=== PATIENT | male | born 1970 | race Caucasian/White ===

== ENCOUNTER 2024-10-01 19:36 | Inpatient (IN) | payer BC, SELFPAY ==
[2024-10-01 16:09] LABS: Hematocrit 43.0 % (39.0-52.0); Hemoglobin 15.4 g/dL (13.0-18.0); Mean Corp Hgb Conc. 35.8 g/dL (33.0-37.0); Mean Corpuscular Volume 84.8 fL (80.0-94.0); Nucleated Red Blood Cells % 0 % (-); Platelet Count 188 10^3/uL (130-400); Red Cell Dist. Width 12.9 % (11.5-14.5)
[2024-10-01 16:16] VITALS: BMI 32.6
--- NOTE | 2024-10-01 16:17 | ED.GENMED ---
History of Present Illness
General
Chief Complaint: Abdominal Symptoms
Time Seen by Provider: 10/01/24 16:00
History of Present Illness
History of Present Illness:
54-year-old male presenting with upper abdominal pain radiating diffusely to his entire abdomen associate with nausea and dry heaves starting around noon. Patient denies vomiting, diarrhea, dysuria, hematuria, chest pain or shortness of breath. No
history of similar symptoms. Patient states he was taking Advil 600 mg once daily last week for right shoulder pain. Patient states he had a bagel for breakfast, nothing for lunch. Pt states he drinks alcohol socially.
Phy Exam
Physical Exam
Physical Exam:
General: Alert, no acute distress
Head: NCAT
Eyes: clear conjunctiva
Neck: supple
Cardiac: regular rate and rhythm, no murmur
Lungs: clear to auscultation bilaterally. No wheezes, rales, or rhonchi. Speaking full unlabored sentences. No respiratory distress.
Abdomen: soft, nondistended diffusely tender. No rebound or guarding.
MSK: no lower extremity edema bilaterally. No deformity
Skin: warm, dry
Neuro: Alert and oriented x3. no focal deficits
Course
Orders/Labs/Results
Orders:
Orders
10/01/24 Breakfast
Regular
10/01/24 14:43
Electrocardiogram (*1) Urgent
Reason for Study: Abdominal Pain
EKG- Treatment ONCE
10/01/24 15:37
IV Insert/Care/Rem.- Treatment PRN
10/01/24 15:52
Complete Blood Count/With Diff Urgent
Comprehensive Metabolic Panel Urgent
Lipase Urgent
Urinalysis Reflex To Culture Urgent
Date Specimen was Collected: 10/01/24
Time Specimen was Collected: 15:37
Urine Microscopic Reflex Cult Urgent
10/01/24 16:16
CT Abd/pelvis W Iv Cont Urgent
Comment:
Reason For Exam: diffuse abdominal pain
Famotidine [Pepcid] 20 mg IV NOW STA
Ondansetron Injectable [Zofran] 4 mg IV NOW STA
10/01/24 18:29
Morphine Sulfate 4 mg IV NOW STA
10/01/24 18:31
Lactic Acid Urgent
10/01/24 18:59
HEMATOLOGY CONSULT Routine
Consulting Provider: Silvestre Gonzalez
Was physician already notified: Yes
Heparin Protocol- PTT Orders As Directed
PTT per Heparin protocol: -Obtain CBC and baseline PTT - if not already collected.
-Obtain PTT 6 hours from start of infusion. Then, every 6 hours until 2 consecutive
PTT's are therapeutic. Then, PTT Daily.
-With each rate change, obtain PTT every 6 hours until 2 consecutive PTT's are
therapeutic. Then, PTT Daily.
Notify MD As Directed
Notify physician if: PTT is greater than or equal to 200.
10/01/24 19:00
Heparin 36049 Units/250 ml 25,000 units in 250 ml IV PER PROTOCOL
Weight to be used for heparin protocol in kilograms (kg):: 115
Protocol:: DVT/PE
PTT Goal Range to be used:: PTT 73 to 111 seconds
Order type:: Initial
INITIAL Infusion Dose (UNITS/KG/hr) & then follow protocol:: 18 units/kg/hr
Infusion Dose in UNITS/hr & then follow protocol (UNITS/hr):: 2,000
INFUSION RATE in mL/hr & then follow protocol (mL/hr):: 20
For DVT/PE algorithm, re-bolus for low PTT?: Yes
PTT less than or equal to 64 seconds:: Re-bolus 80 units/kg (max 10,000units). Increase by 500 units/hr
(+ 5mL/hr)
PTT 64.1 to 72.9 seconds:: Re-bolus 40 units/kg (max 5,000 units). Increase by 200 units/hr
(+ 2mL/hr)
PTT 73 to 111 seconds:: Target Range. No change in rate.
PTT 111.1 to 130.9 seconds:: Decrease rate by 200 units/hr (- 2 mL/hr)
PTT 131 to 199.9 seconds:: HOLD for 1 hr. Then decrease by 400 units/hr (- 4mL/hr)
PTT greater than or equal to 200 seconds:: HOLD for 2 hrs & Notify Provider. Then decrease by 500 units/hr
(- 5mL/hr)
Lab follow-up:: Each change, PTT q6h until 2 consecutive are therapeutic. Then
PTT daily.
10/01/24 19:01
Admit/Transfer Patient As Directed
Co-Sign Provider:
Level of Care: Inpatient admission
Assign to:: Medical/Surgical
Physician / Group: kit
Diagnosis: splenic infract
Reason for Hospitalization: splenic infract
Expected length of stay greater than two midnights?: Yes
ELOS- Estimated Length of Stay in days: 3
I certify the patient meets the requirements for IP care: Yes
PRN Pain Medication Management As Directed
May give lesser potent ordered pain med per pt: Yes
preference::
Protocol:: Medication orders for pain may be administered in a
manner that supports deferring to patient preference
when the pt is:
- Requesting an ordered lesser potent pain medication.
Least to most potent pain medications are defined
as: acetaminophen < NSAID < tramadol < opioids
(morphine, oxycodone, hydromorphone).
- Requesting a lesser dose of the same medication IF
ORDERED.
- Requesting a less intrusive route of administration
if both routes are prescribed by the provider (PO <
IV).
10/01/24 19:02
Code Status As Directed
Resuscitation Status: Full Code
10/01/24 19:12
PTT Urgent
Comment: Obtain baseline before beginning heparin infusion if not already collected
10/01/24 19:19
Heparin 9,200 units IV PRN PRN
10/01/24 19:21
Heparin 4,600 units IV PRN PRN
10/01/24 20:13
Acetaminophen [Tylenol] 650 mg PO Q4HPRN PRN
Bisacodyl [Dulcolax] 10 mg RECTAL [id number] PRN
Docusate W/Senna [Senokot-S] 1 tablet PO BIDPRN PRN
Ondansetron Injectable [Zofran] 4 mg IV Q6HPRN PRN
Polyethylene Glycol Powder [Miralax] 17 grams PO DAILYPRN PRN
10/01/24 20:13
Activity As Directed
Activity Level: As Tolerated
Vital Signs As Directed
Frequency: Per unit guidelines
10/02/24 06:00
Complete Blood Count/No Diff IN AM
10/02/24 08:00
Pantoprazole [Protonix IV] 40 mg IV DAILY
10/03/24 06:00
Complete Blood Count/No Diff IN AM
Complete Blood Count/No Diff Q2D
Comment: Notify MD if platelet count is <130,000 or decreases by 50% from baseline
10/04/24 06:00
Complete Blood Count/No Diff IN AM
10/05/24 06:00
Complete Blood Count/No Diff IN AM
Complete Blood Count/No Diff Q2D
Comment: Notify MD if platelet count is <130,000 or decreases by 50% from baseline
10/07/24 06:00
Complete Blood Count/No Diff Q2D
Comment: Notify MD if platelet count is <130,000 or decreases by 50% from baseline
10/09/24 06:00
Complete Blood Count/No Diff Q2D
Comment: Notify MD if platelet count is <130,000 or decreases by 50% from baseline
10/11/24 06:00
Complete Blood Count/No Diff Q2D
Comment: Notify MD if platelet count is <130,000 or decreases by 50% from baseline
10/13/24 06:00
Complete Blood Count/No Diff Q2D
Comment: Notify MD if platelet count is <130,000 or decreases by 50% from baseline
10/15/24 06:00
Complete Blood Count/No Diff Q2D
Comment: Notify MD if platelet count is <130,000 or decreases by 50% from baseline
10/17/24 06:00
Complete Blood Count/No Diff Q2D
Comment: Notify MD if platelet count is <130,000 or decreases by 50% from baseline
Abnormal Lab Results
10/01/24
15:52
WBC 14.9 H 10^3/uL
(4.8-10.8)
Abs Immat Gran (auto) 0.1 H 10^3/uL
(0-0.05)
Absolute Neuts (auto) 13.5 H 10^3/uL
(1.4-6.5)
Absolute Lymphs (auto) 0.8 L 10^3/uL
(1.2-3.4)
Neutrophils % 90.7 H %
(42.2-75.2)
Lymphocytes % 5.3 L %
(20.5-51.1)
Chloride 108 H mmol/L
(98-107)
Glucose 116 H mg/dl
(70-99)
Urine Bacteria (Reflex) Few A
(Negative)
Urine Albumin (Reflex) 1+ A
(Neg - Trace)
10/01/24 18:59
10/01/24 15:52
Vital Signs
Initial and Last Documented VS:
Initial Vital Signs
Temp Pulse Resp Pulse Ox
98.0 F 94 16 98
10/01/24 14:40 10/01/24 14:40 10/01/24 14:40 10/01/24 14:40
Last Documented Vital Signs
Temp Pulse Resp BP Pulse Ox
99.6 F 102 20 167/93 98
10/01/24 21:03 10/01/24 21:03 10/01/24 20:03 10/01/24 21:03 10/01/24 20:03
MDM/Problems Addressed
Differential Diagnosis Includes:
Pancreatitis, PUD, GERD, appendicitis, diverticulitis
MDM/Problems Addressed:
Results reviewed. WBC 14.9 with left shift. lipase 78. LFTs within normal limits. UA negative for UTI. CT abdomen pelvis shows mild splenomegaly with wedge-shaped regions of decreased enhancement in the spleen concerning for splenic
infarctions. Mesenteric panniculitis.
On reevaluation, patient reports improvement in symptoms. Patient reports epigastric pain. Discussed results with patient at bedside. Patient denies any fever, recent weight loss or night sweats. No history of A-fib or cancer.
Discussed with hematology and hospitalist for admission.
*Pulse Oximetry
SaO2: 98
Oxygen Mode of Delivery: Room air
Patient hypoxic: no
*EKG
Interpreted by ED Provider?: Yes (EKG shows NSR at 89bpm with GA 142 QTc 462 no acute ischemic changes)
*Critical Care Note
Total Time (30-74mins, 75-104mins- exclusive of procedures): Not Applicable
ED Attending Note
-
Portions of this chart may have been created with voice recognition software.� Occasional wrong word or��sound alike� substitutions may have occurred due to the inherent limitations of voice recognition software.
Discharge Plan
Departure
Patient Disposition: Admit
Date of Disposition: 10/01/24
Time of Disposition: 18:41
Presentation/result/management discussed w/ accepting MD/DO: Hospitalist
Discharge Problem:
Splenic infarction, Mesenteric panniculitis
Interventions
Interventions:
*Risk Screen - Suicide Last Done: 10/01/24 14:40
*Neglect/Abuse Screening Last Done: 10/01/24 14:40
*Nursing Disposition Last Done: 10/01/24 20:08
YN-Awussw-Ezirczhyxc Assessment Last Done: 10/01/24 16:16
Discharge Date and Time
Discharge Date/Time: 10/01/24 20:09
[2024-10-01] MEDS: ZOFRAN 4 MG IV (16:23)
[2024-10-01] MEDS: PEPCID 20 MG IV (16:24)
[2024-10-01 16:28] LABS: ALT (SGPT) 26 U/L (0-50); AST (SGOT) 30 U/L (17-59); Albumin 4.5 g/dl (3.5-5.0); Alkaline Phosphatase 56 U/L (38-126); Blood Urea Nitrogen 16 mg/dl (9-20); Calcium 9.6 mg/dl (8.4-10.2); Carbon Dioxide 26 mmol/L (22-30); Chloride 108 mmol/L (98-107); Estimated Creatinine Clearance > 125 ml/min; Glucose 116 mg/dl (70-99); Lipase 78 U/L (23-300); Potassium 4.2 mmol/L (3.5-5.1); Sodium 137 mmol/L (135-145); Total Protein 7.4 g/dl (6.3-8.2); eGFR > 60.00
[2024-10-01 16:41] LABS: Urine Character Slightly Cloudy (Clear)
[2024-10-01 16:50] LABS: Urine Red Blood Cell 0-2 /HPF (0-2); Urine White Cell 0-2 /HPF (0-5)
--- NOTE | 2024-10-01 18:35 | HPS.HSE ---
Family Physician
-
Family Physician: Harrison Orourke
Chief Complaint
-
abdominal pain
dry heaves
History of Present Illness
54-year-old male with no significant PMH presenting with upper abdominal pain radiating diffusely to his entire abdomen associate with nausea and dry heaves starting around noon. patient donated blood yesterday. He went out to eat, as he was coming
out of the restaurant he pass out and he was unresponsive for less than a minute. he passed again at home. they thought it could be from donating blood. this morning, he woke up with blurry vision, weak and lightheaded. blurry vision resolved but
the weakness and lightheaded persisted. around 1030 today morning, he felt dry heaves followed by abdominal pain. denied diarrhea or constipation. denied BRAVO. denied fever, chills, chest pain, sob. denied dysuria or hematuria. denied LE edema.
CT abdomen pelvis with impression of Mild splenomegaly with wedge-shaped regions of decreased enhancement in the spleen concerning for splenic infarctions.Mesenteric panniculitis.
patient received famotidine, morphine, Zofran in the ER.
Medical History
Past Medical History
Past Medical History: Reports Other
Past Surgical History: Reports None
Social History
Tobacco: Former Smoker
Alcohol: Occasional
Drug: None
Personal:
Living: With Family
Employment: Employed
Family History
Family History: Not pertinent
Allergies / Home Medications
Allergies reflects when Allergies were last updated in [facility].
Home Medications with original date entered in [facility]
Allergy/Medication List:
Allergies
Allergy/AdvReac Type Severity Reaction Status Date / Time
Cephalosporins Allergy Unknown Verified 10/01/24 14:42
penicillin V Allergy Unknown Verified 10/01/24 14:42
Penicillins Allergy Unknown Verified 10/01/24 14:42
Review of Systems
-
Constitutional: Reports Chills
EENT: Reports No Symptoms
Respiratory: Reports No Symptoms
Cardiac: Reports No Symptoms
Abdomen/GI: Reports Abdominal Pain and Nausea
: Reports No Symptoms
Musculoskeletal: Reports No Symptoms
Skin: Reports No Symptoms
Neurological: Reports Weakness
Endocrine: Reports No Symptoms
Hematologic/Lymphatic: Reports No Symptoms
Psych: Reports No Symptoms
Physical Exam
Vital Signs
Vital Signs
Temp Pulse Resp Pulse Ox
98.0 F 94 16 98
10/01/24 14:40 10/01/24 14:40 10/01/24 14:40 10/01/24 16:19
Physical Exam
General: Well Developed, Well Nourished and No Apparent Distress
HEENT: NormoCephalic, Moist mucous membranes and Atraumatic
Respiratory: Clear
Cardiac: S1/S2 and Regular Rhythm; No Murmur or Rub
GI: Soft, Non Distended and Normal Bowel Sounds; No Organomegaly
Rectal: Deferred by Provider
Musculoskeletal: No Clubbing, No Cyanosis and No Edema
Skin: No Rash
Neuro: AO x 3 and Nonfocal/grossly intact
Psych: Calm
Laboratory Results
-
10/01/24 15:52
10/01/24 15:52
Laboratory Results
Total Bilirubin 1.1 mg/dl (0.2-1.3) 10/01/24 15:52
AST 30 U/L (17-59) 10/01/24 15:52
ALT 26 U/L (0-50) 10/01/24 15:52
Alkaline Phosphatase 56 U/L (38-126) 10/01/24 15:52
Lipase 78 U/L (23-300) 10/01/24 15:52
Data Reviewed
-
CT Scan: Report Reviewed by me
Lab Data: Labs Reviewed by me
Impression/Plan
-
# Upper abdominal pain associate with nausea and dry heaves secondary to mesenteric panniculitis/mild splenomegaly with splenic infract
- WBC 14
- Lactate pending
- Continue PPI
- Zofran as needed for nausea vomiting
- CT of abdomen pelvis with impression of Mild splenomegaly with wedge-shaped regions of decreased enhancement in the spleen concerning for splenic infarctions.Mesenteric panniculitis.
-heparin
-hematology consulted
#DVT prophylaxis
-heparin
#CODe status
-full COde
[2024-10-01] MEDS: MORPHINE SULFATE 4 MG IV (18:39)
[2024-10-01 19:29] LABS: APTT 23.7 Sec (23.4-35.0)
[2024-10-01 19:30] VITALS: BP 151/90
[2024-10-01] MEDS: HEPARIN 25000 UNITS/250 ML IV (19:33)
--- NOTE | 2024-10-01 19:36 | W.PN.UPDATE ---
Update Note
Progress Note Update
This is an addendum to H&P written by Hui Griffin on 10/01/2024. �Patient seen and examined independently with [employer] HEL[employer].
54-year-old male without medical history presenting with epigastric pain, dry heaving and some nausea starting today. �Yesterday donated blood and fell weak and lightheaded afterwards.
Significant family history for lupus in his mother, breast cancer in his mother, prostate cancer in his father.
Labs show leukocytosis.
CT abdomen pelvis shows mild splenomegaly with wedge-shaped regions of increased enhancement in the spleen concerning for splenic infarctions. �Mesenteric panniculitis.
Patient with splenic infarcts unclear etiology possibly due to underlying autoimmune disorder versus hypercoagulable disorder. �Heparin drip started. �Oncology consulted. �Supportive care for mesenteric panniculitis.
[2024-10-01 20:03] VITALS: BP 147/104; BMI 32.4
[2024-10-01 21:03] VITALS: BP 167/93
[2024-10-01 22:12] VITALS: BP 146/86
[2024-10-01] MEDS: TYLENOL 650 MG PO (22:15)
[2024-10-02 02:05] LABS: APTT 66.1 Sec (23.4-35.0)
[2024-10-02] MEDS: THIAMINE INJECTION 200 MG IV ×3 (02:40→20:23)
[2024-10-02] MEDS: HEPARIN 4600 UNITS IV (02:42)
[2024-10-02 07:30] VITALS: BP 154/90
[2024-10-02] MEDS: HEPARIN 25000 UNITS/250 ML IV ×2 (07:37→22:23)
[2024-10-02] MEDS: NSS (PRESERVATIVE FREE) 10 ML IV (07:56)
[2024-10-02] MEDS: FOLVITE 1 MG PO (07:56)
[2024-10-02] MEDS: PROTONIX IV 40 MG IV (07:56)
[2024-10-02] MEDS: TYLENOL 650 MG PO ×2 (07:57→16:51)
[2024-10-02 09:15] LABS: Hematocrit 42.0 % (39.0-52.0); Hemoglobin 15.1 g/dL (13.0-18.0); Mean Corp Hgb Conc. 36.0 g/dL (33.0-37.0); Mean Corpuscular Volume 84.0 fL (80.0-94.0); Platelet Count 123 10^3/uL (130-400); Red Cell Dist. Width 12.9 % (11.5-14.5)
--- NOTE | 2024-10-02 09:27 | CON.ONC ---
Consultation
-
Date Consultation Requested: 10/02/24
Date Consultation Performed: 10/02/24
Impression
Impression
Splenic infarct
Leukocytosis
Evolving thrombocytopenia with splenomegaly
Mesenteric panniculitis
Plan
Plan
Antiphospholipid antibody assessment
Lupus anticoagulant
Prothrombin gene mutation
Splenomegaly with infarct
Consider JAK2 and PNH assessment
Agree with heparin with conversion to DOAC
Follow CBC
Patient History
History of Present Illness
54-year-old male with no significant PMH presenting with upper abdominal pain radiating diffusely to his entire abdomen associate with nausea and dry which began following blood donation. He suffered a syncopal episode prior to presentation. He has
had resolution of previous symptoms of lightheadedness and blurry vision. He had shaking chills in the emergency room but has had no fever or chills this morning. He denies diarrhea or constipation. He also denies chest pain, sob, dysuria or
hematuria. CT abdomen pelvis with impression of Mild splenomegaly with wedge-shaped regions of decreased enhancement in the spleen concerning for splenic infarctions and mesenteric panniculitis.
Past-Medical/Surgical History
Past Medical History: Unremarkable
Past Surgical History: None previous
Social History
Tobacco: Former Smoker
Alcohol: Occasional
Drug: None
Personal:
Living: With Family
Employment: Employed
Family History
Family History: Not pertinent
Patient Medication
�Medication �Instructions �Recorded �Confirmed �Last Taken �Type
No Meds [No Current Medications] 10/01/24 10/01/24 Unknown History
Active Medications
Generic Name Dose Route Start Last Admin
Trade Name Freq PRN Reason Stop Dose Admin
Acetaminophen 650 mg 10/01/24 20:13 10/02/24 07:57
Acetaminophen 325 Mg Tablet PO 10/29/24 20:12 650 mg
Q4HPRN PRN Administration
mild pain/BRAVO/temp> 100.4F
Bisacodyl 10 mg 10/01/24 20:13
Bisacodyl 10 Mg Rectal Suppository RECTAL 10/29/24 20:12
[id number] PRN
constipation
Folic Acid 1 mg 10/02/24 08:00 10/02/24 07:56
Folic Acid 1 Mg Tablet PO 10/30/24 07:59 1 mg
DAILY HUGH Administration
Heparin Sodium 9,200 units 10/01/24 19:19
Heparin 80 Units/Kg Rebolus-Do Not Discard IV 10/29/24 19:18
PRN PRN
PTT < OR = 64 seconds
Heparin Sodium 4,600 units 10/01/24 19:21 10/02/24 02:42
Heparin 40 Units/Kg Rebolus-Do Not Discard IV 10/29/24 19:20 4,600 units
PRN PRN Administration
PTT = 64.1 to 72.9 seconds
Heparin Sodium 25,000 units in 250 mls @ 0 mls/hr 10/01/24 19:00 10/02/24 07:37
Heparin 89104 Units/250 Ml IV 250 mls
PER PROTOCOL HUGH Administration
Protocol
Per Protocol
Lorazepam 1 mg 10/02/24 00:01
Lorazepam 2 Mg/Ml Vial IV 10/30/24 00:00
Q1HPRN PRN
MSAS 8-11
Lorazepam 2 mg 10/02/24 00:01
Lorazepam 2 Mg/Ml Vial IV 10/30/24 00:00
Q1HPRN PRN
MSAS > 11
Lorazepam 1 mg 10/02/24 00:01
Lorazepam 2 Mg/Ml Vial IV 10/30/24 00:00
Q2HPRN PRN
MSAS 5-7
Ondansetron HCl 4 mg 10/01/24 20:13
Ondansetron 4 Mg/2 Ml Vial IV 10/29/24 20:12
Q6HPRN PRN
nausea and vomiting
Pantoprazole Sodium 40 mg 10/02/24 08:00 10/02/24 07:56
Pantoprazole Sodium 40 Mg/10 Ml Vial IV 10/30/24 07:59 40 mg
DAILY HUGH Administration
Polyethylene Glycol 17 grams 10/01/24 20:13
Polyethylene Glycol Powder 17 Grams Packet PO 10/29/24 20:12
DAILYPRN PRN
constipation
Senna/Docusate Sodium 1 tablet 10/01/24 20:13
Docusate W/Senna (Teri-Colace) Tablet PO 10/29/24 20:12
BIDPRN PRN
constipation
Sodium Chloride 0 flush 10/01/24 21:00
Sodium Chloride 0.9% (Flush) Syringe IV 10/29/24 20:59
PER PROTOCOL HUGH
Sodium Chloride 10 ml 10/02/24 08:00 10/02/24 07:56
Sodium Chloride 0.9% (Preservative Free) 10 Ml Vial IV 10/30/24 07:59 10 ml
DAILY HUGH Administration
Sodium Chloride 0 ml 10/02/24 00:01
Sodium Chloride 0.9% (Preservative Free) 10 Ml Vial IV 10/30/24 00:00
PRN PRN
To dilute IV Ativan
Protocol
Thiamine HCl 200 mg 10/02/24 01:00 10/02/24 07:56
Thiamine (100 Mg/Ml) 2 Ml Vial IV 10/04/24 08:01 200 mg
Q12 HUGH Administration
Thiamine HCl 100 mg 10/05/24 08:00
Thiamine 100 Mg Tablet PO 11/02/24 07:59
BID HUGH
Review of Systems
-
12 point review of systems fails elicit additional complaints as measured in the HPI other than chills and generalized weakness.
Physical Exam
-
Physical Exam
General: Well Developed, Well Nourished and No Apparent Distress
HEENT: NormoCephalic, Moist mucous membranes and Atraumatic
Respiratory: Clear, no decreased tactile fremitus
Cardiac: S1/S2 and Regular Rhythm; No Murmur or Rub
GI: Soft, Non Distended and Normal Bowel Sounds; No Organomegaly
Musculoskeletal: No Clubbing, No Cyanosis and No Edema
Skin: No Rash
Neuro: AO x 3 and Nonfocal/grossly intact
Psych: Calm
Labs
Lab Results
WBC 10.4 10^3/uL (4.8-10.8) 10/02/24 09:03
RBC 5.00 10^6/uL (4.70-6.10) 10/02/24 09:03
Hgb 15.1 g/dL (13.0-18.0) 10/02/24 09:03
Hct 42.0 % (39.0-52.0) 10/02/24 09:03
MCV 84.0 fL (80.0-94.0) 10/02/24 09:03
MCH 30.2 pg (27.0-31.0) 10/02/24 09:03
MCHC 36.0 g/dL (33.0-37.0) 10/02/24 09:03
RDW 12.9 % (11.5-14.5) 10/02/24 09:03
Plt Count 123 10^3/uL (130-400) L D 10/02/24 09:03
MPV 10.1 fL (7.4-10.4) 10/02/24 09:03
Abs Immat Gran (auto) 0.1 10^3/uL (0-0.05) H 10/01/24 15:52
Absolute Neuts (auto) 13.5 10^3/uL (1.4-6.5) H 10/01/24 15:52
Absolute Lymphs (auto) 0.8 10^3/uL (1.2-3.4) L 10/01/24 15:52
Absolute Monos (auto) 0.5 10^3/uL (0.1-0.6) 10/01/24 15:52
Absolute Eos (auto) 0.0 10^3/uL (0-0.7) 10/01/24 15:52
Absolute Basos (auto) 0.0 10^3/uL (0-0.2) 10/01/24 15:52
Immature Gran % 0.4 % (0-0.5) 10/01/24 15:52
Neutrophils % 90.7 % (42.2-75.2) H 10/01/24 15:52
Lymphocytes % 5.3 % (20.5-51.1) L 10/01/24 15:52
Monocytes % 3.3 % (1.7-9.3) 10/01/24 15:52
Eosinophils % 0.1 % (0-6) 10/01/24 15:52
Basophils % 0.2 % (0-2) 10/01/24 15:52
Creatinine 0.8 mg/dL (0.7-1.3) 10/01/24 15:52
Vital Signs
Vital Signs
Temp Pulse Resp BP Pulse Ox
98.3 F 100 16 154/90 96
10/02/24 07:30 10/02/24 07:30 10/02/24 07:30 10/02/24 07:30 10/02/24 07:30
[2024-10-02 09:31] LABS: APTT 152.9 Sec (23.4-35.0)
--- NOTE | 2024-10-02 11:23 | W.PN.HOSP.TC ---
Addendum entered and electronically signed by Carmenza Pierce MD 10/02/24 15:05:
I saw and evaluated the patient independently. I reviewed the resident�s note and agree with findings and plan as documented by Dr. Rios.
GENERAL: well developed, well nourished, male in no apparent distress
HEENT: NC/AT--no O2 requirements
HEART: regular rate and rhythm, +S1, +S2
LUNGS : clear to auscultation bilaterally
ABDOM: soft, nontender, nondistended, + bowel sounds
EXT: no cyanosis, clubbing, or edema
NEUROLOGIC: grossly intact
abdominal pain--likely due to splenic infarcts and mesenteric panniculitis--WBC increased--cont pain control, PPI --IV heparin drip--apprec heme--autoimmune work up in process--will need transition to Eliquis pending peña--CM aware
DVT prophylaxis-heparin
CODE STATUS--full code
Original Note:
Today's Communication/Plan
-
heme/onc lab tests pending
continue supportive care
Assessment / Plan
Assessment / Plan
Mr. Reed is a 54-year-old male with no significant PMH presenting with upper abdominal pain radiating diffusely to his entire abdomen associate with nausea and dry which began following blood donation. He suffered a syncopal episode prior to
presentation. He has had resolution of previous symptoms of lightheadedness and blurry vision. He had shaking chills in the emergency room but has had no fever or chills this morning. He denies diarrhea or constipation. He also denies chest pain,
sob, dysuria or hematuria. CT abdomen pelvis with impression of Mild splenomegaly with wedge-shaped regions of decreased enhancement in the spleen concerning for splenic infarctions and mesenteric panniculitis. Patient was given suportive care for
the abdominal pain due to mesenteric panniculitis. Patient started on heparin drip protocol and heme/onc consulted to help work up splenic infarcts.
# abdominal pain
#mesenteric panniculitis
WBC 14, temp 100.6, met SIRS but temp has improved and no longer meets SIRS
CT of abdomen pelvis with impression of Mild splenomegaly with wedge-shaped regions of decreased enhancement in the spleen concerning for splenic infarctions.Mesenteric panniculitis
Continue PPI
Zofran prn
supportive care
#mild splenomegaly with splenic infracts
FHx of autoimmune conditions, lupus, pointing to possible autoimmune cause
heparin protocol,
hematology consulted appreciate recs
Antiphospholipid antibody assessment
Lupus panel
Prothrombin gene mutation
Consider JAK2 and PNH assessment
Agree with heparin with conversion to DOAC
Follow CBC
#DVT prophylaxis
-heparin
#CODC status
full code
Anticipated Discharge: 24 - 48 hours
Subjective/Interval History
-
Mr. Reed was feeling a lot better today, he had no abdominal pain. He had a mild 4/10 holocephalic headache this AM and he had just taken tylenol for it. He had no other complaints. He was Date of Service: October 02, 2024
Objective Data
-
Labs:
Laboratory Results
10/02/24 10/02/24 10/02/24
01:30 09:02 09:03
WBC 10.4
Hgb 15.1
Hct 42.0
Plt Count 123 L D
APTT 66.1 H 152.9 H*
10/02/24
14:50
WBC
Hgb
Hct
Plt Count
APTT Pending
Vital Signs:
Vital Signs
Temp Pulse Resp BP Pulse Ox
98.3 F 100 16 154/90 96
10/02/24 07:30 10/02/24 07:30 10/02/24 07:30 10/02/24 07:30 10/02/24 08:00
I&O
10/01/24 10/02/24 10/03/24
06:59 06:59 06:59
Intake Total 1100 / 1099
Balance 1100 / 1099
Review of Systems
-
History Source: Patient
Constitutional: Reports No Symptoms; Denies Fever or Fatigue
EENT: Reports No Symptoms Reported; Denies Sore Throat or Runny Nose
Respiratory: Reports No Symptoms; Denies Cough or Trouble Breathing
Cardiac: Reports No Symptoms; Denies Chest Pain or Palpitations
Abdomen/GI: Reports No Symptoms; Denies Abdominal Pain, Nausea or Vomiting
Genitourinary: Reports No Symptoms; Denies Dysuria
Musculoskeletal: Reports No Symptoms and Joint Pain
Neuro: Reports Headache
Physical Exam
-
General: Well Developed, Well Nourished, No Apparent Distress and Comfortable
HEENT: Normocephalic and Atraumatic
Respiratory: Clear to Auscultation; Negative Wheezes or Crackles
Cardiac: Regular Rhythm and S1/S2; Negative Murmur or Rub
GI: Soft, Nondistended, Normal Bowel Sounds and Tender (mild diffuse tenderness on palpation)
Musculoskeletal: No Clubbing, No Cyanosis and No Edema
Skin: Warm and Dry
Neuro: Awake, Alert and Oriented
--- NOTE | 2024-10-02 15:10 | CM ---
Addendum entered by Kavya Traore 10/02/24 15:26:
cost of eliquis is 30$ per [facility] will update patient and physician.
Original Note:
Patient seen at bedside on . Patient lives in a split level home with his and son. Patient and son present with the physician. Patient states that he is independent of ADL's and IADL's. Patient PCP is Dr. Harrison Padron and he uses
the [facility] on [facility]. CM will reach out to determine cost of Eliquis at the request of the physician. Patient plan is home with no needs. CM will continue to follow for discharge planning needs.
Plan; home with no needs.
[2024-10-02 15:34] LABS: APTT 93.8 Sec (23.4-35.0)
[2024-10-02 15:45] VITALS: BP 134/85
[2024-10-02 22:33] LABS: APTT 141.9 Sec (23.4-35.0)
[2024-10-02 23:17] VITALS: BP 117/76
[2024-10-03 06:05] LABS: APTT 104.9 Sec (23.4-35.0)
[2024-10-03 06:09] LABS: Hematocrit 42.0 % (39.0-52.0); Hemoglobin 14.9 g/dL (13.0-18.0); Mean Corp Hgb Conc. 35.5 g/dL (33.0-37.0); Mean Corpuscular Volume 85.0 fL (80.0-94.0); Platelet Count 76 10^3/uL (130-400); Red Cell Dist. Width 12.8 % (11.5-14.5)
[2024-10-03 06:57] LABS: Blood Urea Nitrogen 14 mg/dl (9-20); Calcium 9.0 mg/dl (8.4-10.2); Carbon Dioxide 27 mmol/L (22-30); Chloride 107 mmol/L (98-107); Estimated Creatinine Clearance > 125 ml/min; Glucose 104 mg/dl (70-99); Potassium 4.4 mmol/L (3.5-5.1); Sodium 138 mmol/L (135-145); eGFR > 60.00
[2024-10-03 08:24] VITALS: BP 130/76
[2024-10-03] MEDS: NSS (PRESERVATIVE FREE) 10 ML IV (08:25)
[2024-10-03] MEDS: FOLVITE 1 MG PO (08:25)
[2024-10-03] MEDS: THIAMINE INJECTION 200 MG IV (08:25)
[2024-10-03] MEDS: PROTONIX IV 40 MG IV (08:26)
[2024-10-03] MEDS: ELIQUIS 5 MG PO (11:47)
[2024-10-03 12:26] VITALS: BP 128/76
[2024-10-03 12:40] LABS: APTT 53.0 Sec (23.4-35.0)
--- NOTE | 2024-10-03 13:09 | W.PN.HOSP.TC ---
Addendum entered and electronically signed by Carmenza Pierce MD 10/03/24 13:20:
I saw and evaluated the patient independently. I reviewed the resident�s note and agree with findings and plan as documented by Dr. Rios.
GENERAL: well developed, well nourished, male in no apparent distress
HEENT: NC/AT--no O2 requirements
HEART: regular rate and rhythm, +S1, +S2
LUNGS : clear to auscultation bilaterally
ABDOM: soft, nontender, nondistended, + bowel sounds
EXT: no cyanosis, clubbing, or edema
NEUROLOGIC: grossly intact
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
thrombocytopenia -- drop since starting heparin drip (188, 123, 76)--check HIT assay--IV heparin stopped in favor of Eliquis
DVT proph
CODE STATUS--full code
Original Note:
Today's Communication/Plan
-
Heparin antibody drawn
Patient medically stable for discharge
Assessment / Plan
Assessment / Plan
Mr. Reed is a 54-year-old male with no significant PMH presenting with upper abdominal pain radiating diffusely to his entire abdomen associate with nausea and dry which began following blood donation. He suffered a syncopal episode prior to
presentation. He has had resolution of previous symptoms of lightheadedness and blurry vision. He had shaking chills in the emergency room but has had no fever or chills this morning. He denies diarrhea or constipation. He also denies chest pain,
sob, dysuria or hematuria. CT abdomen pelvis with impression of Mild splenomegaly with wedge-shaped regions of decreased enhancement in the spleen concerning for splenic infarctions and mesenteric panniculitis. Patient was given suportive care for
the abdominal pain due to mesenteric panniculitis. Patient started on heparin drip protocol and heme/onc consulted to help work up splenic infarcts. Heme-onc talked with patient and ordered a battery of tests will follow-up outpatient. Patient's
platelets started to decrease. Heparin was stopped as it was thought to be due to heparin-induced thrombocytopenia. Patient was switched over to Eliquis. Heparin antibody test drawn. Will follow-up with hematology. Patient medically stable for
discharge.
# abdominal pain
#mesenteric panniculitis
WBC 14, temp 100.6, met SIRS but temp has improved and no longer meets SIRS
CT of abdomen pelvis with impression of Mild splenomegaly with wedge-shaped regions of decreased enhancement in the spleen concerning for splenic infarctions.Mesenteric panniculitis
Continue PPI
Zofran prn
supportive care
# Thrombocytopenia
Platelets within normal limits before initiation of heparin
Platelets decreased to 76 on 10/03
4TS score of 5 at intermediate risk
Heparin antibody drawn
Patient switched over to Eliquis
Follow-up with hematology
#mild splenomegaly with splenic infracts
FHx of autoimmune conditions, lupus, pointing to possible autoimmune cause
heparin protocol stopped
hematology consulted appreciate recs
Antiphospholipid antibody assessment
Lupus panel
Prothrombin gene mutation
Consider JAK2 and PNH assessment
Agree with heparin with conversion to DOAC
Follow CBC
#DVT prophylaxis
eliquis
#CODC status
full code
Anticipated Discharge: Today
Subjective/Interval History
-
Patient was seen at bedside he states that he is doing well. Headache improved after coffee. Has no abdominal pain shortness of breath chest pain. Informed patient about Eliquis and follow-up with hematology. Discussed the need for 1 additional
test regarding heparin. Patient verbalized understanding. Medically stable for discharge. Date of Service: October 03, 2024
Objective Data
-
Labs:
Laboratory Results
10/03/24 10/03/24
05:40 12:21
WBC 9.2
Hgb 14.9
Hct 42.0
Plt Count 76 L D
APTT 104.9 H 53.0 H
Sodium 138
Potassium 4.4
Chloride 107
Carbon Dioxide 27
BUN 14
Creatinine 0.9
Glucose 104 H
Calcium 9.0
Vital Signs:
Vital Signs
Temp Pulse Resp BP Pulse Ox
98 F 70 16 128/76 95
10/03/24 12:26 10/03/24 12:26 10/03/24 12:26 10/03/24 12:26 10/03/24 12:26
I&O
10/02/24 10/03/24 10/04/24
06:59 06:59 06:59
Intake Total 1100 / 1100 1120 / 1120
Balance 1100 / 1100 1120 / 1120
Review of Systems
-
History Source: Patient and Family
All other systems: Reviewed and negative
Constitutional: Reports No Symptoms; Denies Fever
Respiratory: Reports No Symptoms; Denies Cough or Trouble Breathing
Cardiac: Reports No Symptoms; Denies Chest Pain or Palpitations
Abdomen/GI: Reports No Symptoms; Denies Abdominal Pain, Nausea, Vomiting or Diarrhea
Genitourinary: Reports No Symptoms; Denies Dysuria
Musculoskeletal: Reports No Symptoms
Physical Exam
-
General: Well Developed, Well Nourished, No Apparent Distress and Comfortable
HEENT: Normocephalic and Atraumatic
Respiratory: Clear to Auscultation; Negative Wheezes or Crackles
Cardiac: Regular Rhythm and S1/S2; Negative Murmur
GI: Soft, Nontender, Nondistended and Normal Bowel Sounds
Musculoskeletal: No Clubbing, No Cyanosis and No Edema
Skin: Warm and Dry
Neuro: Awake, Alert and Oriented
--- NOTE | 2024-10-03 16:02 | W.DCSUMMARY ---
Addendum entered and electronically signed by Carmenza Pierce MD 10/03/24 16:16:
Read, reviewed, and agree. See same day progress note for additional details. Time spent coordinating care, DC planning, review of DC plan of care with resident, transition of care, review of records in EMR, med rec, consults, notes, d/w
consultants, nursing, family, and CM = 31 minutes
Original Note:
Discharge Summary
Discharge Data
Date of Admission: 10/01/24
Date of Discharge: 10/03/24
-
Pending Results: Yes
Additional Pending Results:
HIT antibody, will follow up with hematology
Hospital Course
Discharging Physician : Dr. Pierce, Dr. Rios
Disposition : Home
Primary care physician : Harrison Orourke
Principal Discharge diagnosis :
Mesenteric panniculitis
Splenic infarct of unknown etiology
Chronic Discharge diagnosis :
Hospital Course :
Mr. Reed is a 54-year-old male with no significant PMH presenting with upper abdominal pain radiating diffusely to his entire abdomen associate with nausea and dry which began following blood donation. He suffered a syncopal episode prior to
presentation. He has had resolution of previous symptoms of lightheadedness and blurry vision. He had shaking chills in the emergency room but has had no fever or chills. CT abdomen pelvis with impression of Mild splenomegaly with wedge-shaped
regions of decreased enhancement in the spleen concerning for splenic infarctions and mesenteric panniculitis. Patient was given suportive care for the abdominal pain due to mesenteric panniculitis. Patient started on heparin drip protocol and
heme/onc consulted to help work up splenic infarcts. Heme-onc talked with patient and ordered a battery of tests will follow-up outpatient. Patient's platelets started to decrease after initiation of heparin. Heparin was stopped as it was thought
to be due to heparin-induced thrombocytopenia. Patient was switched over to Eliquis. Heparin antibody test drawn. Will follow-up with hematology. Patient medically stable for discharge
Important imaging findings :
CT abdomen pelvis 10/01
IMPRESSION:
Mild splenomegaly with wedge-shaped regions of decreased enhancement in the spleen concerning for splenic infarctions.
Mesenteric panniculitis.
Other chronic findings, as detailed above.
Procedure findings :
Discharge Plan
-
Patient Disposition: Home (Routine Discharge)
Discharge Diagnosis/Procedures: mesenteric panniculitis, splenic infarct of unknown etiology
Condition: Good
Diet: No restrictions
Activity: As tolerated
Driving Restrictions: As prior to admission
Bathing Restrictions: None
Referrals:
Harrison Orourke MD [Family Provider, [facility]] - in less than 1 week
Prescriptions:
New
Eliquis 5 mg Tablet
5 mg PO BID Qty: 60 0RF
Discharge Orders:
Discharge Patient (As Directed); Ordered 10/03/24
Ordered By: Delores Rios
Discharge Date and Time
Discharge Date/Time: 10/03/24 12:32
Print Language: KOREAN
[2024-10-04 05:28] LABS: Beta-2-Glycoprotein I Ab. IgA <10 SAU (<=20)
[2024-10-04 16:51] LABS: Beta-2-Glycoprotein I Ab. IgG <10 SGU (<=20); Beta-2-Glycoprotein I Ab. IgM <10 SMU (<=20)
[2024-10-06 20:06] LABS: Phosphatidylserine Ab, IgA 0 APS (0-19); Phosphatidylserine Ab, IgG 1 GPS (0-15); Phosphatidylserine Ab, IgM 3 MPS (0-21)
[2024-10-06 22:37] LABS: Anticoagulant Med Neutralizati Hepzyme (Not Performed); Neutralized dRVTT Screen Ratio Not Performed (<=1.20); Prothrombin Time 15.9 s (12.0-15.5); dRVTT 1.1 Mix Ratio Not Performed (<=1.20); dRVTT Confirmation Ratio Not Performed (<=1.20); dRVTT Screen Ratio 0.97 (<=1.20)
== END 2024-10-03 12:32 | disposition home or self-care (01) | DRG 815 ==
LOC: 4 WEST ACU 19:36
PROVIDERS: Registered Nurse; Student in an Organized Health Care Education/Training Program; ADMITTING PHYSICIAN Hospitalist; ATTENDING PHYSICIAN Internal Medicine; EMERGENCY PHYSICIAN Emergency Medicine; FAMILY PHYSICIAN Family Medicine; OTHER PHYSICIAN Internal Medicine Hematology & Oncology
DX: D73.5 Infarction of spleen (principal); K65.4 Sclerosing mesenteritis; R65.10 Systemic inflammatory response syndrome (SIRS) of non-infectious origin without acute organ dysfunction; D69.59 Other secondary thrombocytopenia; Z87.891 Personal history of nicotine dependence
CPT/HCPCS: 74177; 80048; 80053; 81003; 81015; 83605; 83690; 85025; 85027; 85520; 85525; 85610; 85613; 85670; 85730; 86022; 86146; 86147; 86148; 93005; 96374; 96375; 99285; Q9967

== ENCOUNTER 2025-01-19 06:18 | Day surgery (SDC) | payer BC, SELFPAY | END 2025-01-19 09:01 | disposition home or self-care (01) | LOC: GI 06:18 | PROVIDERS: ATTENDING PHYSICIAN Internal Medicine Gastroenterology | DX: Z12.11 Encounter for screening for malignant neoplasm of colon (principal); K57.30 Diverticulosis of large intestine without perforation or abscess without bleeding; K64.8 Other hemorrhoids; D12.2 Benign neoplasm of ascending colon; D12.5 Benign neoplasm of sigmoid colon; Z80.0 Family history of malignant neoplasm of digestive organs | CPT/HCPCS: 45385; 45380; 88305 ==

== ENCOUNTER → 2025-03-16 17:07 | Outpatient (REF) | payer BC, SELFPAY | LOC: RAD 17:07 | PROVIDERS: ATTENDING PHYSICIAN Internal Medicine Hematology & Oncology; FAMILY PHYSICIAN Physician Assistant Medical | DX: I74.8 Embolism and thrombosis of other arteries (principal) | CPT/HCPCS: 74170; Q9967 ==